=== PATIENT | female | born 1940 | race Caucasian/White ===

== ENCOUNTER 2017-01-23 18:05 | Emergency (ER) | payer MEDICARE, OTHER ==
--- NOTE | ~2017-01-23 | EKG ---
PATIENT: YUNIEL ALVES UNIT #: [id number] Ventricular Rate: 84 BPM Atrial Rate: 84 BPM P-R Interval: 188 ms QRS Duration: 112 ms Q-T Interval: 388 ms QTC Calculation(Bezet): 458 ms P [place]: 76 degrees Calculated R [place]: -9 degrees Calculated T [place]: 73 degrees Diagnosis Line: Normal sinus rhythm Diagnosis Line: Left atrial enlargement Diagnosis Line: Incomplete right bundle branch block Diagnosis Line: Borderline ECG Diagnosis Line: No previous ECGs available Diagnosis Line: Confirmed by NOE OVIEDO MD ([id number]) on 01/26/2017 Diagnosis Line: 4:00:33 PM INTERPRETING MD: PREET THOMAS
--- NOTE | ~2017-01-23 | CR72 ---
[facility] A Service of [facility] & [facility] RADIOLOGY TEXT RESULTS PATIENT: YUNIEL ALVES LOCATION: [facility] : 40 UNIT #: [id number] AGE: [address]: Garth Fong MD SEX: F ORDER DR: [id number] [facility] [address] [place], [place] [address] [id number] MR#: [id number] #: [id number] NAME: YUNIEL ALVES : 1940 SEX: F STUDY DATE/TIME: 01/23/2017 18:20 UNIT: [facility] ROOM: STUDY DESCRIPTION: CR Chest Single View Portable Attending Physician: Garth Fong M.D. Ordering Physician: Garth Fong M.D. Primary Care Physician: Julio Chamorro M.D. MEDICAL IMAGING REPORT This report is preliminary unless electronic signature is present EXAM Portable chest 01/23 INDICATIONS Weakness today. Patient unresponsive. History of multiple myeloma. TECHNIQUE AP portable chest is compared with 02/12/2016. FINDINGS Cardiomegaly is stable. Some mild vascular congestion. Minimal infiltrate or atelectasis in both bases. No pneumothorax. 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 Scoliosis is unchanged. IMPRESSION Stable cardiomegaly with some mild vascular congestion. There is some mild atelectasis or less likely infiltrate in the lung bases. Dictated by... Kyle Youngblood Jr., M.D. THIS IS AN ELECTRONICALLY VERIFIED REPORT Kyle Youngblood Jr., M.D. at 01/24/2017 8:53 AM RLK/john TD: 01/23/2017 21:49 JOB #: [id number] MEDICAL IMAGING REPORT Page 1 of 1 COPY
[~2017-01-23 18:05] MED LIST: ACETAMINOPHEN325 MG PR; ACYCLOVIR400 MG PO; ALBUTEROL17 GM INH; ALBUTEROL2.5 MG/0.5 INH; ALLEGRA ALLERGY60 MG PO; ARTIFICIAL TEAR15 M9 OU; ASCORBIC ACID500 M4 PO; AZELASTINE137 MCG/0.; AZITHROMYCIN250 MG PO; BACLOFEN10 MG PO; BIOFREEZE118 ML TOP; CALCARB 600 W-V1 TAB PO; CALCIUM CARBON500 M2 PO; CARDIZEM CD120 M1 PO; CARDIZEM CD180 M2 PO; CELEXA10 M1 PO; CELEXA20 MG PO; CITRATE OF MAG296 M1 PO; CITRATE OF MAG300 ML PO; CLEAR EYES COOL15 ML; COLACE PO; DAKIN'S473 M1 MC; DITROPAN XL5 M2 PO; ENSURE LIQUID237 M2 PO; FIBER LAX625 MG PO; FLONASE 0.05% N16 G1; FLORASTOR250 M1 PO; IMDUR-ER60 M1 PO; LASIX PO; LIDOCAINE 3% TOP; MAGOX 400400 MG PO; MIRALAX17 GM PO; MUCINEX1200 MG PO; MULTI VITAMIN1 EACH PO; NASAL MOIST45 ML; NIFEREX-150 CAP1 CAP PO; NITROGLYGERIN0.4 MG SL; OMEPRAZOLE20 M2 PO; OXECTA5 MG PO; PREPARATION H60 GM MC; PULMICORT0.5 MG/21 INH; PYRIDOXINE HCL100 MG PO; REQUIP0.25 MG PO; ROBITUSSIN A-C S5 ML PO; SENNA S TABLET1 TAB PO; SPIRIVA18 MCG INH; VITAMIN C100 MG PO; VITAMIN D-32000 UNIT PO; ZOFRAN ODT4 M1 SL
[2017-01-23 18:42] LABS: BASOPHIL% 0.2 % (0-2.5); EOSINOPHIL% 0.2 % (0.0-7.0); HEMATOCRIT 33.8 % (35.0-45.0); HEMOGLOBIN 10.8 gm/dL (12.0-16.0); LYMPHOCYTE# 1.1 X10e3 (1.0-3.5); LYMPHOCYTE% 12.1 % (17.0-45.0); MEAN CELL VOLUME 79.1 FL (83-96); MEAN CORPUSCULAR HEMOGLOBIN 25.3 PG (28-34); MEAN PLATELET VOLUME 8.2 FL (6.5-11.5); MONOCYTE# 1.4 X10e3 (0-1.0); MONOCYTE% 15.1 % (3.0-12.0); NEUTROPHIL# 6.7 X10e3 (1.5-7.1); NEUTROPHIL% 72.4 % (40-75); PLATELET COUNT 133 X10e3 (140-420); RED BLOOD COUNT 4.27 X10e (3.90-5.30); RED CELL DISTRIBUTION WIDTH 17.3 % (11.0-15.5); WHITE BLOOD COUNT 9.3 X10e3 (4.0-10.5)
[2017-01-23 18:45] LABS: DIFF IND NO
[2017-01-23 18:50] LABS: POC - CKMB <1.0 ng/mL (0.0-7.9); POC - TROPONIN <0.05 ng/mL (<=0.05)
[2017-01-23 19:02] LABS: INR 1.1; PARTIAL THROMBOPLASTIN TIME 25.7 SECONDS (23.5-31.3); PROTHROMBIN TIME (PATIENT) 11.3 SECONDS (9.6-11.5)
[2017-01-23 19:17] LABS: ALBUMIN SERUM 3.1 g/dL (3.5-5.0); ALKALINE PHOSPHATASE 55 U/L (32-92); ALT (SGPT) 22 U/L (10-40); AMYLASE 16 U/L (0-46); AST (SGOT) 34 U/L (10-42); BILIRUBIN,TOTAL 0.4 mg/dL (0.2-2.0); BLOOD UREA NITROGEN 31 mg/dL (9-23); BUN/CREATININE RATIO 25.83; CALCIUM SERUM 9.6 mg/dL (8.4-10.2); CARBON DIOXIDE 27 mmol/L (22-31); CHLORIDE 94 mmol/L (100-111); CREATININE SERUM 1.2 mg/dL (0.6-1.4); GLOM FILT RATE Estimated 43.9 mL/min (>60); GLUCOSE FASTING 89 mg/dL (70-110); LIPASE 17 U/L (22-51); MAGNESIUM 2.5 mg/dL (1.6-3.0); PHOSPHOROUS 3.7 mg/dL (2.5-4.6); POTASSIUM 3.9 mmol/L (3.5-5.1); PROTEIN TOTAL SERUM 8.7 g/dL (6.0-8.3); SODIUM 130 mmol/L (135-145)
[2017-01-23 19:19] LABS: BILIRUBIN, DIRECT <0.1 mg/dL (0.0-0.2); BILIRUBIN,INDIRECT 0.3 mg/dL (0.0-0.9)
[2017-01-23 20:20] LABS: URINE SOURCE CLEAN CATCH
[2017-01-23 20:24] LABS: URINE APPEARANCE CLEAR; URINE BILIRUBIN NEG (NEG); URINE BLOOD NEG (NEG); URINE COLOR YELLOW; URINE GLUCOSE NEG (NEG); URINE KETONE NEG (NEG); URINE LEUKOCYTE ESTERASE NEG (NEG); URINE NITRATE NEG (NEG); URINE PH 7.5 (5-8); URINE PROTEIN NEG (NEG); URINE SPECIFIC GRAVITY 1.011 (1.003-1.035); URINE UROBILINOGEN 0.2 MG/DL (NEG)
[2017-01-23 20:26] LABS: CULTURE INDICATED? NO
[2017-01-23 20:57] LABS: POC - CKMB <1.0 ng/mL (0.0-7.9); POC - TROPONIN <0.05 ng/mL (<=0.05)
== END 2017-01-23 23:10 | disposition home or self-care (01) ==
LOC: CED 18:05
PROVIDERS: Emergency Medicine
DX: N17.9 Acute kidney failure, unspecified (principal); I10 Essential (primary) hypertension; J44.9 Chronic obstructive pulmonary disease, unspecified; K21.9 Gastro-esophageal reflux disease without esophagitis; Z79.899 Other long term (current) drug therapy
CPT/HCPCS: 51701; 71010; 80048; 80076; 81003; 82140; 82150; 82553; 83605; 83690; 83735; 84100; 84484; 85025; 85610; 85730; 87040; 93005; 96360; 96361; 99284